=== PATIENT | female | born 1965 | race Caucasian/White ===

== ENCOUNTER 2019-03-14 10:18 | Emergency (ER) | payer OTHER ==
[~2019-03-14] VITALS: Ht 149.9 cm; Wt 56.7 kg
[~2019-03-14 10:18] MED LIST: ALEVE220 MG PO; AMOXICILLIN875 MG PO; ASPIRIN EC81 M1 PO; AVELOX 400 MG400 MG PO; AZITHROMYCIN 2250 MG PO; CIPROFLOXACIN500 M1 PO; CLEOCIN HCL150 MG PO; HTN PO; HYDROCHLOROTHIA25 M2 PO; IBUPROFEN 600600 M1 PO; LISINOPRIL-HCT1 EAC2 PO; LISINOPRIL-HCT1 EACH PO; LISINOPRIL10 MG PO; MACROBID 100 M100 M1 PO; NOHOMEMEDICATIONS; NORCO 5-325 TA1 EACH PO; PENICILLIN V P500 MG PO; PEPCID20 MG PO; PREDNISONE 20 M20 MG PO; PREDNISONE50 MG PO; PRINIVIL20 MG PO; PROAIR HFA8.5 GM IH; TESSALON200 MG PO; ZOFRAN ODT4 MG PO; ZYRTEC10 MG PO
[2019-03-14] MEDS ORDERED: DOXYCYCLINE 10100 MG PO (12:54)
[2019-03-14 13:09] VITALS: BP 150/104
== END 2019-03-14 13:11 | disposition home or self-care (01) ==
LOC: ER 10:18
DX: J34.89 Other specified disorders of nose and nasal sinuses (principal); R09.81 Nasal congestion; E03.9 Hypothyroidism, unspecified; I10 Essential (primary) hypertension; F17.210 Nicotine dependence, cigarettes, uncomplicated; Z90.710 Acquired absence of both cervix and uterus; Z90.49 Acquired absence of other specified parts of digestive tract; Z86.73 Personal history of transient ischemic attack (TIA), and cerebral infarction without residual deficits; Z88.0 Allergy status to penicillin; Z88.1 Allergy status to other antibiotic agents; Z91.018 Allergy to other foods

== ENCOUNTER 2019-04-19 09:07 | Emergency (ER) | payer OTHER ==
[~2019-04-19] VITALS: Ht 149.9 cm; Wt 54.0 kg
[~2019-04-19 09:07] MED LIST changes: +DOXYCYCLINE 10100 MG PO
[2019-04-19 09:29] LABS: URINE BILIRUBIN NEGATIVE (Negative); URINE BLOOD NEGATIVE (Negative); URINE CLARITY CLEAR; URINE COLOR YELLOW; URINE GLUCOSE-RANDOM* NEGATIVE (Negative); URINE KETONES NEGATIVE (Negative); URINE LEUKOCYTES-REFLEX NEGATIVE (Negative); URINE NITRITE-REFLEX NEGATIVE (Negative); URINE PROTEIN (DIPSTICK) NEGATIVE (Negative); URINE SPECIFIC GRAVITY <= 1.005 (1.005-1.035); URINE UROBILINOGEN 0.2 E.U./dl (0.2-1.0)
[2019-04-19] MEDS ORDERED: NORVASC 2.5 MG2.5 M1 PO (09:38)
[2019-04-19] MEDS ORDERED: ASA81BEC PO (09:38)
[2019-04-19] MEDS ORDERED: LIPITOR10 MG PO (09:39)
[2019-04-19] MEDS ORDERED: LEVO-T25 MCG PO (09:39)
[2019-04-19 09:42] LABS: ABSOLUTE NEUTROPHILS 5.5 thou/uL (1.4-8.2); BASOPHILS 0.8 % (0.0-2.0); EOSINOPHILS 0.4 % (0.0-3.0); HEMATOCRIT 44.7 % (37.0-47.0); HEMOGLOBIN 15.1 gm/dL (12.0-15.0); LYMPHOCYTES 23.7 % (24.0-44.0); MCH 31.9 pg (26.0-34.0); MCHC 33.8 g/dL (28.0-37.0); MCV 94.5 fL (80.0-100.0); MONOCYTES 4.6 % (1.0-8.0); PLATELET COUNT 388 thou/uL (150-400); POLYS 70.5 % (36.0-66.0); RBC 4.73 mil/uL (4.20-5.00); RDW 13.4 % (10.5-14.5); WBC 7.8 thou/uL (4.0-11.0)
[2019-04-19 09:50] LABS: CALCIUM 9.3 mg/dL (8.5-10.1); CREATININE 0.6 mg/dL (0.6-1.0); POTASSIUM 4.2 mmol/L (3.5-5.1)
[2019-04-19 09:56] LABS: ALBUMIN 4.4 g/dL (3.4-5.0); TOTAL BILIRUBIN 0.3 mg/dL (<0.1-1.0); TOTAL PROTEIN 8.4 g/dL (6.4-8.2)
[2019-04-19] MEDS ORDERED: ZOFRAN ODT4 MG PO (10:36)
[2019-04-19] MEDS ORDERED: IMODIUM A-D2 MG PO (10:36)
[2019-04-19] MEDS ORDERED: BENTYL 20 MG TA20 M1 PO (10:36)
[2019-04-19 11:57] VITALS: BP 163/91
== END 2019-04-19 11:57 | disposition home or self-care (01) ==
LOC: ER 09:07
PROVIDERS: Emergency Medicine
DX: R19.7 Diarrhea, unspecified (principal); E03.9 Hypothyroidism, unspecified; I10 Essential (primary) hypertension; F17.210 Nicotine dependence, cigarettes, uncomplicated; Z88.1 Allergy status to other antibiotic agents; Z88.0 Allergy status to penicillin; Z90.710 Acquired absence of both cervix and uterus

== ENCOUNTER 2019-06-08 14:18 | Emergency (ER) | payer OTHER ==
[~2019-06-08] VITALS: Ht 149.9 cm; Wt 56.7 kg
[~2019-06-08 14:18] MED LIST changes: +ASA81BEC PO; +BENTYL 20 MG TA20 M1 PO; +IMODIUM A-D2 MG PO; +LEVO-T25 MCG PO; +LIPITOR10 MG PO; +NORVASC 2.5 MG2.5 M1 PO
[2019-06-08 15:56] VITALS: BP 139/92
== END 2019-06-08 15:56 | disposition home or self-care (01) ==
LOC: ER 14:18
DX: J34.89 Other specified disorders of nose and nasal sinuses (principal); I10 Essential (primary) hypertension; E03.9 Hypothyroidism, unspecified; K58.9 Irritable bowel syndrome, unspecified; F17.210 Nicotine dependence, cigarettes, uncomplicated; Z90.710 Acquired absence of both cervix and uterus; Z90.49 Acquired absence of other specified parts of digestive tract; Z98.890 Other specified postprocedural states; Z86.73 Personal history of transient ischemic attack (TIA), and cerebral infarction without residual deficits; Z91.018 Allergy to other foods; Z88.0 Allergy status to penicillin; Z88.1 Allergy status to other antibiotic agents